=== PATIENT | male | born 1965 | race Caucasian/White ===

== ENCOUNTER 2021-09-16 07:23 | Emergency (ER) | payer MEDICARE, OTHER ==
[~2021-09-16] VITALS: Ht 175.3 cm; Wt 100.8 kg
[2021-09-16] MEDS ORDERED: BACTRIM DS TAB1 EACH PO (07:48)
[2021-09-16] MEDS ORDERED: HYDROXYZIN10 MG/5 ML PO (07:48)
[2021-09-16] MEDS ORDERED: NEURONTIN400 MG PO (07:48)
[2021-09-16] MEDS ORDERED: MELATONIN3 MG PO (07:48)
[2021-09-16] MEDS ORDERED: SERTRALINE HCL100 MG PO (07:48)
[2021-09-16] MEDS ORDERED: NAPROSYN500 MG PO (07:48)
[2021-09-16] MEDS ORDERED: MIRTAZAPINE15 MG PO (07:48)
[2021-09-16] MEDS ORDERED: CYCLOBENZAPRINE5 MG PO (07:48)
== END 2021-09-16 07:54 | disposition home or self-care (01) ==
LOC: FSED 07:50
DX: Z48.01 Encounter for change or removal of surgical wound dressing (principal)
CPT/HCPCS: 99283